=== PATIENT | female | born 1950 ===

== ENCOUNTER 2024-07-31 06:07 | Day surgery (SDC) | payer OTHER ==
[2024-07-27 16:01] LABS: Absolute Basophils 0.1 K/uL (0-0.5); Absolute Eosinophils 0.2 K/uL (0-0.5); Absolute Lymphocytes (CBC) 2.5 K/uL (0.7-4.9); Absolute Monocytes 0.9 K/uL (0.1-1.3); Absolute Neutrophil 5.1 K/uL (1.8-8.0); Basophils % 0.9 % (0-1.3); Eosinophils % 2.3 % (0-4.4); Hematocrit 44.6 % (36.0-45.0); Hemoglobin 14.6 g/dL (12.0-15.0); Lymphocytes % 28.8 % (15.3-44.8); MCH 28.6 pg (27.0-35.0); MCHC 32.8 g/dL (32.0-36.0); MCV 87.3 fL (80-100); MPV 7.6 fL (7.6-11.3); Monocytes % 9.8 % (3.3-12.3); Neutrophils % 58.2 % (41.7-73.7); Nucleated Red Blood Cells % 0.1 % (0-0); Platelets 379 thou/uL (152-406); RBC Red Blood Cell Count 5.11 M/uL (3.86-4.86); Red Cell Distribution Width 14.6 % (12.1-15.2)
--- NOTE | 2024-07-27 21:25 | RAD REPORT ---
EXAMINATION: TWO VIEW CHEST XR CLINICAL INDICATION: Female, 73 years old. [facility] Pre op pending temporal biopsy TECHNIQUE: 2 view radiographs of the chest were performed. COMPARISON: No prior exam. FINDINGS: The lungs are mildly hyperinflated and clear apart from mild right basilar atelectasis.. No pneumotho rax or sizable effusion. The heart is normal in size. Mediastinal contours are unremarkable. IMPRESSION: No acute or significant abnormalities.
--- NOTE | 2024-07-30 12:02 | EKG ---
Test Date: 2024-07-27 Test Time: 15:32:09 Tractor Technician: MANJULA MEASUREMENT RESULTS: Intervals: Rate: 76 FL: 158 QRSD: 74 QT: 372 QTc: 418 [place]: P: 70 FL: 158 QRS: 45 T: 56 INTERPRETIVE STATEMENTS: Normal sinus rhythm Normal ECG No previous ECG available for comparison Electronically Signed On 07-30-24 11:54:44 CDT by Fabrizio Chavira
[2024-07-31] MEDS: Ringers Lactate 1,000 ML IV ONE (06:35)
[2024-07-31] MEDS ORDERED: ONDANSETRON 4 MG/2 ML VIAL ONE (06:55)
[2024-07-31] MEDS ORDERED: propofoL 200 MG/20 ML VIAL IV ONE (06:55)
[2024-07-31] MEDS ORDERED: MIDAZOLAM HCL 2 MG/2 ML INJ ONE (06:55)
[2024-07-31] MEDS ORDERED: LIDOCAINE 2% MPF 5 ML VIAL ONE (06:55)
[2024-07-31] MEDS ORDERED: FENTANYL CITR 100 MCG/2 ML ONE (06:55)
[2024-07-31 07:10] LABS: Anion Gap 7.9 mEq/L (5.0-15.0); C-Reactive Protein 10.6 mg/L (<3.00); Potassium 3.9 mEq/L (3.5-5.1)
[2024-07-31] MEDS: CEFAZOLIN SODIUM 2 GM/VIAL ONE (07:40)
[2024-07-31] MEDS: LIDOCAINE 1% MPF 30 ML VIAL ONE (07:45)
--- NOTE | 2024-07-31 08:18 | P.OP ---
Date of Service: 07/31/24 Preop diagnosis: Right-sided headache with vision change, rule out temporal arteritis Postop diagnosis: Same Procedure performed: Right temporal artery biopsy with utilization of a Doppler Surgeon: Royce Polk MD Social Sciences Professor: Yudy BUSCH Estimated blood loss: Minimal Specimen: Right temporal artery Findings: As above Anesthesia: MAC Complications: None Drains: None Fluids and blood products: Nonapplicable Disposition: Recovery room Operative note: Patient brought to the OR and placed in the supine position. MAC anesthesia began. Patient prepped and draped in the usual sterile fashion. Lidocaine 1% infiltrated locally. 15 blade used to make a 4 cm incision over the branch of the temporal artery. This branch was identified by the utilization of a Doppler device. The location was just anterior and superior to the right ear. Subcutaneous tissue divided and bleeding controlled cautery. Branch of the temporal artery identified and proximal and distal control obtained. Approximately 4 cm segment of the temporal artery excised sent to pathology as specimen. Both ends tied off with 4-0 silk ties. Wound irrigated bleeding controlled cautery. 4-0 chromic used to approximate subcutaneous tissue and close skin. Sterile dressing applied. Patient awakened and taken to recovery room in good general condition. CC: Dr. Guerin's office
[2024-07-31 09:31] VITALS: BP 118/54; TEMP 97.4; O2SAT 100
== END 2024-07-31 09:10 | disposition home or self-care (01) ==
LOC: OR 06:07
PROVIDERS: ATTEND Surgery
PROC: 03BS0ZX Excision of Right Temporal Artery, Open Approach, Diagnostic (ICD-10-PCS; principal; 2024-07-31 07:30)
DX: R51.0 Headache with orthostatic component, not elsewhere classified (principal)
CPT/HCPCS: 36415; 71046; 80048; 85025; 86140; 88304; 88305; 93005; J2001; J2003; J2250; J2405; J2704; J3010; J7120